=== PATIENT | male | born 1990 | race Caucasian/White ===

== ENCOUNTER 2017-02-10 04:40 | Emergency (ER) | payer MEDICAID ==
[~2017-02-10] VITALS: Ht 172.7 cm; Wt 113.4 kg
[2017-02-10 04:42] VITALS: BP 140/83
--- NOTE | 2017-02-10 04:51 | NUR ---
Patient ambulated to bed 03.
--- NOTE | 2017-02-10 04:58 | NUR ---
ER AT BEDSIDE FOR EVAL
--- NOTE | 2017-02-10 05:05 | NUR ---
27Y/M PATIENT PRESENTS TO ED WITH C/O ABDOMINAL PAIN X 2 HRS . PT STATES PAIN AFTER WAKE UP WITH FEELING NAUSEA, NO VOMIITING, NO DIARRHEA, NO FEVER. NO MEDICAL HX.; SKIN IS PINK/WARM/DRY; AAOX4 WITH EVEN AND STEADY GAIT; LUNGS CLEAR BL; HR EVEN AND REGULAR; PT DENIES ANY FEVER, CP, SOB, OR COUGH AT THIS TIME; PATIENT STATES PAIN OF 5/10 AT THIS TIME; VSS; PATIENT POSITIONED FOR COMFORT; HOB ELEVATED; BEDRAILS UP X2; BED DOWN. ER MD MADE AWARE OF PT STATUS.
[2017-02-10 05:59] LABS: HEMATOCRIT 43.2 % (36-52); HEMOGLOBIN 14.6 g/dL (12.0-18.0); MEAN CORPUSCULAR HEMOGLOBIN 28 pg (27-31); MEAN CORPUSCULAR HGB CONC 34 g/dL (33-37); MEAN CORPUSCULAR VOLUME 84 fL (80-94); PLATELET COUNT (AUTO) 172 K/uL (140-450); RED BLOOD CELL COUNT(AUTO) 5.16 MIL/uL (4.20-6.10); RED CELL DISTRIBUTION WIDTH 12.5 % (11.6-13.7); WHITE BLOOD COUNT (AUTO) 11.6 K/uL (4.8-10.8)
[2017-02-10 06:05] LABS: ANION GAP 13.9 (8-16); CALCIUM 8.4 mg/dL (8.5-10.1); CARBON DIOXIDE 25.8 mmol/L (21-32); CREATININE 0.9 mg/dL (0.6-1.3); POTASSIUM 3.7 mmol/L (3.5-5.1)
[2017-02-10 06:12] LABS: ALBUMIN 3.9 g/dL (3.4-5.0); TOTAL BILIRUBIN 0.3 mg/dL (0.0-1.0)
[2017-02-10 06:18] LABS: BAND % (MANUAL) 6 % (0-8); EOSINOPHILS % (MANUAL) 2 % (0-4); LYMPHOCYTES % (MANUAL) 5 % (20-46); MONOCYTES % (MANUAL) 2 % (5-12); NEUTROPHILS % (MANUAL) 85 (43-65); PLATELET ESTIMATE ADEQUATE
[2017-02-10 06:31] LABS: BILIRUBIN,URINE NEGATIVE (NEGATIVE); BLOOD, URINE NEGATIVE (NEGATIVE); LEUKOCYTE ESTERASE ,URINE NEGATIVE (NEGATIVE); NITRITE, URINE NEGATIVE (NEGATIVE); PH,URINE 5.5 (5.0-9.0); PROTEIN,URINE NEGATIVE (NEGATIVE); UGLUCOSE NEGATIVE (NEGATIVE); UROBILINOGEN,URINE 0.2 EU/dL (0.2 - 1)
[2017-02-10 06:32] LABS: AMYLASE 25 U/L (25-115); LIPASE 88 U/L (73-393)
[2017-02-10] MEDS ORDERED: LEVOFLOXACIN 750 MG TAB PO ONE (06:40)
[2017-02-10 07:05] LABS: APPEARANCE,URINE SLIGHTLY HAZY (CLEAR); COLOR,URINE YELLOW (YELLOW)
[2017-02-10 07:07] LABS: BACTERIA,URINE None Seen /HPF (None Seen); MUCUS,URINE 3+ /LPF (None Seen); RBC,URINE NONE SEEN /HPF (0-5); SQUAMOUS EPITHELIAL CELL,UR 0-3 (FEW) /LPF (0-3 (FEW))
[2017-02-10 07:09] VITALS: BP 138/93
--- NOTE | 2017-02-10 07:10 | NUR ---
Patient discharged with v/s stable. Written and verbal after care instructions given and explained. Patient alert, oriented and verbalized understanding of instructions. Ambulatory with steady gait. All questions addressed prior to discharge. ID band removed. Patient advised to follow up with PMD. Rx of LAVAQUIN 500 MG, NORCO 7.5/325 MG given. Patient educated on indication of medication including possible reaction and side effects. Opportunity to ask questions provided and answered.
== END 2017-02-10 07:10 | disposition home or self-care (01) ==
LOC: MED 04:40
DX: J18.9 Pneumonia, unspecified organism (principal); Z88.2 Allergy status to sulfonamides; Z88.8 Allergy status to other drugs, medicaments and biological substances
CPT/HCPCS: 36415; 71020; 80053; 81001; 82150; 83690; 85025; 87086; 99285